=== PATIENT | female | born 1970 | race African-American/Black ===

== ENCOUNTER 2018-11-26 13:40 | Emergency (ER) | payer MEDICAID ==
[~2018-11-26] VITALS: Ht 157.5 cm; Wt 68.6 kg
[2018-11-26 13:42] VITALS: BP 131/90
[2018-11-26] MEDS ORDERED: dexamethasone sod phosphate 10mg/ml inj PO STA (13:53)
[2018-11-26] MEDS ORDERED: KEN0.1O TP (13:55)
[2018-11-26] MEDS ORDERED: triamcinolone acetonide 40mg/ml inj IM ONE (13:55)
== END 2018-11-26 14:56 | disposition home or self-care (01) ==
LOC: ER 13:41
DX: L30.9 Dermatitis, unspecified (principal); Z88.5 Allergy status to narcotic agent; Z88.8 Allergy status to other drugs, medicaments and biological substances; Z79.2 Long term (current) use of antibiotics
CPT/HCPCS: 96372; 99283; J1100; J3301

== ENCOUNTER 2019-09-29 23:34 | Emergency (ER) | payer MEDICAID ==
[~2019-09-29] VITALS: Ht 157.5 cm; Wt 68.4 kg
[2019-09-30] MEDS ORDERED: ibuprofen tablet 400 MG TABLET PO ONE (00:15)
[2019-09-30 00:56] VITALS: BP 129/72
== END 2019-09-30 01:21 | disposition home or self-care (01) ==
LOC: ER 23:35
DX: M25.511 Pain in right shoulder (principal); Z98.890 Other specified postprocedural states; Z88.1 Allergy status to other antibiotic agents; Z88.5 Allergy status to narcotic agent; Z88.6 Allergy status to analgesic agent
CPT/HCPCS: 73030; 99283

== ENCOUNTER 2024-01-10 21:41 | Emergency (ER) | payer MEDICAID ==
[~2024-01-10] VITALS: Ht 157.5 cm; Wt 71.9 kg
[2024-01-10 21:44] VITALS: TEMP 97.5
[2024-01-10 22:21] VITALS: BP 118/86; PULSE 84; RESP 16; O2SAT 98
[2024-01-10] MEDS: dexamethasone sod phosphate 10mg/ml inj IM STA (23:06)
== END 2024-01-10 23:15 | disposition home or self-care (01) ==
LOC: ER 21:41
DX: L30.9 Dermatitis, unspecified (principal); Z88.1 Allergy status to other antibiotic agents; Z88.6 Allergy status to analgesic agent; Z88.8 Allergy status to other drugs, medicaments and biological substances; Z79.899 Other long term (current) drug therapy
CPT/HCPCS: 96372; 99283; J1100